=== PATIENT | male | born 2000 | race Asian ===

== ENCOUNTER 2024-12-28 18:14 | Emergency (ER) | payer OTHER, SELFPAY ==
[2024-12-28 18:15] VITALS: BP 161/136; PULSE 70; RESP 19; TEMP 36.2; O2SAT 94; BMI 17.6
--- NOTE | 2024-12-28 18:28 | ED.RN ---
right facial droop and mild numbness. did [facility] assessment.
[2024-12-28] MEDS: predniSONE 20 MG Tablet 60 MG PO (18:29)
--- NOTE | 2024-12-28 18:29 | EX.ED.DYSGE1 ---
HPI <ROMARIO Jimenez - Last Filed: 12/28/24 18:46> History of Present Illness Chief Complaint: Numb/Ting Narrative Narrative: 24-year-old male presents with mild right facial weakness. Yesterday while showering he noticed water was getting into his right eye even though he had them closed. When he smiles the right side is slightly drooped. He has no headache, visual or speech changes, or symptoms in his extremities. He has no health problems and takes no medications. PFSH <ROMARIO Jimenez - Last Filed: 12/28/24 18:46> [facility] [place] Medical History (Updated 12/28/24 @ 18:27 by ROMARIO Jimenez) Numbness Home Medications ?Medication ?Instructions ?Recorded ?Last Taken ?Type prednisone 20 mg tablet 40 mg (2 x 20 mg) PO DAILY 7 days 12/28/24 Unknown Rx #14 tabs Allergy/AdvReac Type Severity Reaction Status Date / Time No Known Allergies Allergy Verified 12/28/24 18:15 Social History Smoking Status: Unknown if ever smoked EXAM <ROMARIO Jimenez - Last Filed: 12/28/24 18:46> Physical Exam Narrative Exam Narrative: CONST: Patient sitting in no acute distress. EYES: Normal inspection. NECK: Normal inspection. RESP: No respiratory distress, CTAB. CVS: Regular rate and rhythm, no murmur, no gallop. SKIN: Color normal, no rash, warm, dry, intact. EXTREMITIES: Normal appearance, no pedal edema. NEURO: Alert and answering questions appropriately. Normal facial appearance at rest. When closing his eyes his right upper lid does not close tightly. When smiling there is a mild right facial droop. Tongue midline. Extraocular motion intact. No aphasia or dysarthria. 5/5 upper and lower extremity strength, normal finger-nose and heel quinteros, normal gait. PSYCH: Normal affect. Const Vital Signs: 12/28/24 18:15 12/28/24 18:32 Temperature 97.2 F L Temperature Source Oral Pulse Rate 70 56 L Respiratory Rate 19 H Blood Pressure 161/136 H 101/72 Blood Pressure Mean 144 81 Pulse Ox 94 Oxygen Delivery Method Room Air <Dr. Zoran Keys MD - Last Filed: 12/28/24 18:37> Physical Exam Const Vital Signs: 12/28/24 18:15 12/28/24 18:32 Temperature 97.2 F L Temperature Source Oral Pulse Rate 70 56 L Respiratory Rate 19 H Blood Pressure 161/136 H 101/72 Blood Pressure Mean 144 81 Pulse Ox 94 Oxygen Delivery Method Room Air [facility] <ROMARIO Jimenez - Last Filed: 12/28/24 18:46> [facility] Narrative Medical decision making narrative: 24-year-old male developed right facial tingling and mild weakness yesterday. No headache. No symptoms in his upper or lower extremities. He has a very mild right facial droop appreciable with testing of his facial muscles. He has a normal neurological exam and normal gait. He was hypertensive in triage however it was rechecked and is 101/72 so I think this was an accurate. 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 I do not think CT imaging is indicated. He was given a dose of prednisone and prescribed prednisone 40 mg x 1 week. I discussed symptomatic management and return precautions. He was discharged in stable condition. I have personally performed a face to face assessment of the patient and have reviewed the GRISELDA Note. I performed a substantive portion of the visit including all aspects of the following. My reagan findings include: History is [24-year-old male noticed tingling in right side of his face yesterday. No headache. No head trauma. No prior past medical history. No prior head or neck surgery. Denies any weakness to his upper or lower extremities. No ataxia. No visual change.] Exam is [well-appearing 24-year-old male. Vital signs are stable with blood pressure initially is 161/136 at a be rechecked. Patient sitting upright in a chair. H EENT exam pupils round react to light. Extract motions are intact. Forehead is spared. He does have weakness to his right upper and lower lid. He can close his eye but it is weaker than the left. He has a very mild right facial droop. Tongue is midline normal speech. TMs are normal. No facial rashes. No facial swelling or tenderness. Neck nontender. Lungs clear equal and symmetrical. Heart regular rhythm no murmur rate about 70. Chest wall ribs nontender. Abdomen soft nontender. Moving all 4 extremities. 5 out of 5 tray delivery aide strength. Dorsi plantarflexion intact. No drift. Fingertip to nose within normal limits. Patient could stand from a seated position walk across the room and back without any difficulty. No ataxia. Other than his very mild right facial droop and weakness to closing his right eye his neurologic exam otherwise is normal. Exam is consistent with Mcgovern's palsy.] Medical Decision Making [24-year-old male right facial droop with tingling exam consistent with Mcgovern's palsy. Prednisone 60 mg here and 40 mg day for a week. I do not think he needs imaging at this time.] Other additions or changes: [ repeat blood pressure prior to discharge was 101/72.] <Dr. Zoran Keys MD - Last Filed: 12/28/24 18:37> [facility] Narrative Medical decision making narrative: I have personally performed a face to face assessment of the patient and have reviewed the GRISELDA Note. I performed a substantive portion of the visit including all aspects of the following. My reagan findings include: History is [24-year-old male noticed tingling in right side of his face yesterday. No headache. No head trauma. No prior past medical history. No prior head or neck surgery. Denies any weakness to his upper or lower extremities. No ataxia. No visual change.] Exam is [well-appearing 24-year-old male. Vital signs are stable with blood pressure initially is 161/136 at a be rechecked. Patient sitting upright in a chair. H EENT exam pupils round react to light. Extract motions are intact. Forehead is spared. He does have weakness to his right upper and lower lid. He can close his eye but it is weaker than the left. He has a very mild right facial droop. Tongue is midline normal speech. TMs are normal. No facial rashes. No facial swelling or tenderness. Neck nontender. Lungs clear equal and symmetrical. Heart regular rhythm no murmur rate about 70. Chest wall ribs nontender. Abdomen soft nontender. Moving all 4 extremities. 5 out of 5 tray delivery aide strength. Dorsi plantarflexion intact. No drift. Fingertip to nose within normal limits. Patient could stand from a seated position walk across the room and back without any difficulty. No ataxia. Other than his very mild right facial droop and weakness to closing his right eye his neurologic exam otherwise is normal. Exam is consistent with Mgcovern's palsy.] Medical Decision Making [24-year-old male right facial droop with tingling exam consistent with Mcgovern's palsy. Prednisone 60 mg here and 40 mg day for a week. I do not think he needs imaging at this time.] Other additions or changes: [ repeat blood pressure prior to discharge was 101/72.] History & Record Review Discussion w/independent historian: Patient Additional record(s) reviewed:: No prior records Discharge Plan Triage Chief Complaint: Numb/Ting ED Midlevel Provider: Marya Florentino ED Provider: Zoran Keys Dx/Rx/DC Orders Clinical Impression: Mcgovern's palsy Instructions: Mcgovern's Palsy Prescriptions: New prednisone 20 mg tablet 40 mg PO DAILY 7 Days Qty: 14 0RF Primary Care Provider: Care Physician,No Primary Referrals: Cindi Kwon, [employer]ATOR-[facility] [[facility]] - Activity Restrictions/Additional Instructions: He will have symptoms of Mcgovern's palsy which is a nerve disorder affecting the muscles of your face. Take the steroids as prescribed. This usually resolves over weeks to months. You may need to use lubricating drops in your eye or tape it shut at night to avoid drying out. Print Language: Malagasy Disposition Disposition: Home, Self Care
[2024-12-28 18:32] VITALS: BP 101/72; PULSE 56
--- NOTE | 2024-12-28 18:50 | ED.RN ---
[facility] security coming to get patient.
== END 2024-12-28 18:51 | disposition home or self-care (01) ==
LOC: ED 18:43
PROVIDERS: Emergency Provider Emergency Medicine; Visit Provider Emergency Medicine
DX: G51.0 Bell's palsy (principal)
CPT/HCPCS: 99282